=== PATIENT | male | born 1965 | race Caucasian/White ===

== ENCOUNTER 2020-02-12 12:01 | Emergency (ER) | payer OTHER, SELFPAY ==
[2020-02-12 12:03] VITALS: BP 118/81; PULSE 64; RESP 17; TEMP 36.6; BMI 30.5
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
[2020-02-12 12:19] LABS: Absolute Lymphocyte Count 0.75 X10^3/uL (0.83-4.51); Absolute Neutrophil Count 4.4 X10^3/uL (2.0-7.7); Basophil# 0.04 X10^3/uL; Basophil% 0.7 % (0-1); Eosinophil# 0.26 X10^3/uL; Eosinophils% 4.3 % (0-5); Hematocrit 44.8 % (40-54); Hemoglobin 15.3 g/dL (13.0-16.5); Lymphocyte # 0.75 X10^3/ul (4.0); Lymphocyte % 12.5 % (19-41); Mean Corp Hgb Conc 34.2 g/dL (32-36); Mean Corpuscular Hgb 30.3 pg (27.0-32.0); Mean Corpuscular Volume 88.7 fL (80-94); Mean Platelet Vol. 10.4 fl (6.2-12.0); Monocyte# 0.43 X10^3/uL; Monocyte% 7.2 % (0-10); NRBC Flagged by Analyzer 0 % (0-5); Neutrophil # 4.44 X10^3/uL (2.7-7.7); Neutrophil % 74.1 % (47-70); Platelet Count 173 K/mm3 (150-450); RBC Distribution Width CV 13.2 % (11.6-14.6); Red Blood Count 5.05 M/mm3 (4.6-6.2)
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
[2020-02-12] MEDS: Diphth,Pertuss(Acell),Tet Vac 0.5 ML Vial IM (12:42)
[2020-02-12 12:43] LABS: Anion Gap 3 (5-15); BUN 29 mg/dL (7-18); BUN/Creat Ratio 27.1 RATIO (10-20); Calcium,Total 8.5 mg/dL (8.5-10.1); Chloride 108 mmol/L (98-107); Creatinine, Serum 1.07 mg/dL (0.70-1.30); EST Glomerular Filtration Rate 76 mL/min (>60); Est Glom Filt Rate - Afr Amer 92 mL/min (>60); Estimated Creatinine Clearance 74.58 ml/min; Glucose 130 mg/dL (74-106); Potassium 3.9 mmol/L (3.5-5.1); Sodium Level 139 mmol/L (136-145)
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
[2020-02-12 15:07] VITALS: BP 123/64; PULSE 75; RESP 16; O2SAT 98
--- NOTE | 2020-02-12 15:08 | ED.RN ---
DISCHARGE INSTRUCTIONS GIVEN TO AND REVIEWED WITH PATIENT AND SPOUSE, BOTH DENY QUESTIONS OR CONCERNS AND VOICES UNDERSTANDING.
== END 2020-02-12 15:08 | disposition home or self-care (01) ==
PROVIDERS: Emergency Provider Physician Assistant Medical
DX: S01.01XA Laceration without foreign body of scalp, initial encounter (principal); S81.011A Laceration without foreign body, right knee, initial encounter; S43.401A Unspecified sprain of right shoulder joint, initial encounter; S80.812A Abrasion, left lower leg, initial encounter; S80.811A Abrasion, right lower leg, initial encounter; S50.811A Abrasion of right forearm, initial encounter; Z23 Encounter for immunization; V23.4XXA Motorcycle driver injured in collision with car, pick-up truck or van in traffic accident, initial encounter; Y93.9 Activity, unspecified; Y92.410 Unspecified street and highway as the place of occurrence of the external cause; Y99.9 Unspecified external cause status; F17.200 Nicotine dependence, unspecified, uncomplicated
CPT/HCPCS: 12002; 70450; 72125; 73030; 73630; 80048; 85025; 90471; 90715; 99285; A4216

== ENCOUNTER → 2020-03-03 15:25 | Outpatient (CLI) | payer SELFPAY ==
[2020-02-12 12:03] VITALS: BMI 30.5
--- NOTE | 2020-03-03 15:36 | MRI_ITS ---
STUDY: MRI LEFT KNEE REASON FOR EXAM: Male, 54 years old. Left knee pain. TECHNIQUE: Standardized fat and water weighted pulse sequences were obtained in all 3 orthogonal planes. COMPARISON: None. FINDINGS: Normal medial meniscus. Normal hyaline cartilage of the medial femorotibial compartment. Thickening and signal abnormality in the proximal medial collateral ligament consistent with intermediate grade injury. Normal distal semimembranosus, gracilis and semitendinosus tendons. Normal lateral meniscus. Normal hyaline cartilage of the lateral femorotibial compartment. Normal proximal tibiofibular articulation. Normal lateral collateral (fibular) ligament. Normal popliteus tendon. Normal biceps femoris tendon. Partial tear of the anterior cruciate ligament. Normal posterior cruciate ligament (PCL). Moderate lateral patellar subluxation. Normal hyaline cartilage of the patellofemoral compartment. Normal medial and lateral patellar retinaculum. Normal quadriceps tendon. Normal patellar tendon. Bone contusions in the lateral femoral condyle and posterolateral tibia consistent with ACL tear. Marrow signal is otherwise unremarkable. Moderate joint effusion. Mild anterior subcutaneous edema. MRI/Lower Ext Joint Only (Routine) IMPRESSION: 1. Partial ACL tear. 2. Intermediate grade MCL sprain. 3. Lateral bone contusions. 4. Joint effusion. 5. Lateral patellar subluxation. Electronically Signed: Dolly Archibald MD at 17:21 EDT Tel , Service support ,
== END ==
PROVIDERS: Referring Provider Chiropractor; Visit Provider Chiropractor
DX: S83.207A Unspecified tear of unspecified meniscus, current injury, left knee, initial encounter (principal); X58.XXXA Exposure to other specified factors, initial encounter; Y93.9 Activity, unspecified; Y92.9 Unspecified place or not applicable; Y99.9 Unspecified external cause status
CPT/HCPCS: 73721